=== PATIENT | female | born 1970 ===

== ENCOUNTER 2024-07-06 10:10 | Inpatient (IN) | payer OTHER ==
[~2024-07-06] VITALS: Ht 162.6 cm; Wt 77.1 kg
[2024-07-06] MEDS ORDERED: VALSARTAN-HCTZ1 EAC4 PO (11:13)
[2024-07-06] MEDS ORDERED: FLUVOXAMINE MA100 M1 PO (11:14)
[2024-07-06] MEDS ORDERED: WIXELA 100-501 EACH IH (11:14)
[2024-07-12] MEDS ORDERED: LIDOCAINE HCL 1%/EPINEPHRINE 20ML VIAL IJ ONE ×2 (07:22→08:45)
[2024-07-12] MEDS ORDERED: CEFTRIAXONE SODIUM 2,000 MG VIAL ONE (07:22)
[2024-07-12] MEDS ORDERED: BUPIVACAINE HCL/Mpf 0.5% 10ML VIAL ONE (07:22)
[2024-07-12] MEDS ORDERED: METRONIDAZOLE/SODIUM CHLORIDE 500 MG/100 ML PIGGYBACK IV ONE (07:25)
[2024-07-12] MEDS ORDERED: POVIDONE-IODINE 118 ML BOTT TOP ONE ×2 (07:30→08:45)
[2024-07-12] MEDS ORDERED: VISTASEAL DUAL APPICATOR 1 EACH APPL TOP ONE ×2 (07:30→08:45)
[2024-07-12] MEDS ORDERED: THROMBIN,HU/FIBRINOGEN/CALCIUM 10 ML SYRINGE TOP ONE ×2 (07:30→08:45)
[2024-07-12] MEDS ORDERED: levoFLOXacin IN DEXTROSE 5 % 5 MG/ML PIGGYBAG IV ONE (08:30)
[2024-07-12] MEDS ORDERED: BUPIVACAINE HCL 30 ML VIAL IJ ONE (08:30)
[2024-07-12] MEDS ORDERED: METRONIDAZOLE/SODIUM CHLORIDE 200 ML IV ONE (08:30)
[2024-07-12] MEDS ORDERED: RINGERS SOLUTION,LACTATED 1,000 ML IV SCH (10:23)
[2024-07-12] MEDS ORDERED: ONDANSETRON HCL 2 MG/ML VIAL IV SCH (10:24)
[2024-07-12] MEDS ORDERED: ACETAMINOPHEN 325 MG TABLET PO SCH (10:25)
[2024-07-12] MEDS ORDERED: SUGAMMADEX SODIUM 200 MG/2 ML VIAL IV ONE ×2 (10:31→10:45)
[2024-07-12] MEDS ORDERED: ENALAPRILAT DIHYDRATE 1.25 MG/ML VIAL IV PRN (13:45)
[2024-07-12] MEDS ORDERED: LEVALBUTEROL HCL 0.63 MG/3 ML SOLUTION IH SCH (14:00)
[2024-07-12 14:27] LABS: ABG PH 7.517 (7.35-7.45); ABG PO2 415.9 mmHg (80-100); ABG pCO2 28.2 mmHg (35-45); BASE EXCESS 0.7 mmol/l; BICARBONATE 22.3 mmol/l (23-25); Tco2 23.2 mmol/l
[2024-07-12 14:34] LABS: allen test SATISFACTORY; o2 40 %; puncture site RADIAL LEFT
[2024-07-12] MEDS ORDERED: MORPHINE SULFATE 4 MG/ML VIAL IV ONE (15:00)
[2024-07-12 16:01] LABS: HEMATOCRIT 33.7 % (36.0-45.00); MEAN CELL VOLUME 76.6 fL (80.00-100.00); MEAN CORPUSCULAR HEMOGLOBIN 25.1 pg (27.00-32.0); MEAN CORPUSCULAR HGB CONC 32.7 g/dl (32.0-36.0); PLATELET COUNT 256 K/uL (150-450); RED CELL DISTRIBUTION WIDTH 16.7 % (11.5-14.5)
[2024-07-12] MEDS ORDERED: ENALAPRILAT DIHYDRATE 1.25 MG/ML VIAL IV ONE (16:02)
[2024-07-12 16:18] LABS: CALCIUM 8.9 mg/dL (8.5-10.1); CREATININE SERUM 0.63 mg/dL (0.55-1.02); GFR 98.11; POTASSIUM 3.03 mEq/L (3.5-5.1)
[2024-07-12] MEDS ORDERED: POTASSIUM CHLORIDE 20MEQ/100ML H2O PB IV NR (16:30)
[2024-07-12] MEDS ORDERED: GABAPENTIN 100 MG CAPSULE PO SCH (17:00)
[2024-07-13 03:51] LABS: HEMATOCRIT 33.3 % (36.0-45.00); MEAN CELL VOLUME 76.1 fL (80.00-100.00); PLATELET COUNT 260 K/uL (150-450); RED BLOOD COUNT 4.37 M/uL (4.00-6.00); RED CELL DISTRIBUTION WIDTH 16.7 % (11.5-14.5)
[2024-07-13 03:54] LABS: MEAN CORPUSCULAR HEMOGLOBIN 25.1 pg (27.00-32.0)
[2024-07-13] MEDS ORDERED: CETIRIZINE HCL 5 MG/5 ML ML PO SCH ×2 (09:00)
[2024-07-13] MEDS ORDERED: PATIENTS OWN MEDICATION (MEDICAMENTO EN PISO) PO SCH (09:00)
== END 2024-07-13 10:11 | disposition home or self-care (01) | DRG 742 ==
LOC: OB/GYN 07-12 05:15 → O/R 07-12 05:15 → SURH 07-12 07:00 → OB/GYN 07-12 14:12 → SURG 07-12 16:31 → OB/GYN 07-12 16:36
PROVIDERS: Internal Medicine Geriatric Medicine; Surgery; ADMIT Obstetrics & Gynecology Gynecology; ATTEND Obstetrics & Gynecology Gynecology
PROC: 0DBW4ZZ Excision of Peritoneum, Percutaneous Endoscopic Approach (ICD-10-PCS; 2024-07-12)
PROC: 0DNN4ZZ Release Sigmoid Colon, Percutaneous Endoscopic Approach (ICD-10-PCS; 2024-07-12)
PROC: 0UN14ZZ Release Left Ovary, Percutaneous Endoscopic Approach (ICD-10-PCS; 2024-07-12)
PROC: 0FT44ZZ Resection of Gallbladder, Percutaneous Endoscopic Approach (ICD-10-PCS; 2024-07-12)
PROC: 0DTJ4ZZ Resection of Appendix, Percutaneous Endoscopic Approach (ICD-10-PCS; 2024-07-12)
PROC: 0UT94ZZ Resection of Uterus, Percutaneous Endoscopic Approach (ICD-10-PCS; principal; 2024-07-12 07:00)
PROC: 0UT74ZZ Resection of Bilateral Fallopian Tubes, Percutaneous Endoscopic Approach (ICD-10-PCS; 2024-07-12 07:00)
DX: D25.9 Leiomyoma of uterus, unspecified (principal); K80.10 Calculus of gallbladder with chronic cholecystitis without obstruction; N80.03 Adenomyosis of the uterus; I11.9 Hypertensive heart disease without heart failure; G47.30 Sleep apnea, unspecified; D50.0 Iron deficiency anemia secondary to blood loss (chronic); R73.01 Impaired fasting glucose; F32.9 Major depressive disorder, single episode, unspecified; N80.399 Endometriosis of the pelvic peritoneum, other specified sites, unspecified depth; K66.0 Peritoneal adhesions (postprocedural) (postinfection); N80.549 Endometriosis of the appendix, unspecified depth; Z20.822 Contact with and (suspected) exposure to COVID-19